=== PATIENT | female | born 1960 | race Caucasian/White ===

== ENCOUNTER 2019-01-30 07:59 | Emergency (ER) | payer OTHER ==
[~2019-01-30] VITALS: Ht 160 cm; Wt 64.0 kg
[2019-01-30 08:04] VITALS: BP 163/83; PULSE 85; RESP 20; Ht 160 cm; Wt 64.0 kg
[2019-01-30] MEDS ORDERED: AMOX500C2 PO (08:26)
[2019-01-30] MEDS ORDERED: FAMO-96 PO (08:26)
[2019-01-30] MEDS ORDERED: D-ME473S2 PO (08:26)
--- NOTE | 2019-01-30 08:29 | ERD ---
ER Documentation Chief Complaint Chief Complaint sore throat and fever x 15 days HPI 58-year-old male presents with sore throat for the last 15 days. She may have had tactile fevers at home but no measured temperature. She has minimal cough. She has a history of gastritis. She does not take any medication for stomach although she did in the past. She took one ampicillin that she took at home last night. She denies chest pain, shortness of breath, lower abdominal pain, urinary complaints. ROS All systems reviewed and are negative except as per history of present illness. Medications Home Meds Active Scripts Famotidine* (Pepcid*) 20 Mg Tablet, 20 MG PO BID for 14 Days, #30 TAB Prov:EDWIGE PETERSON MD 01/30/19 Dextromethorphan Hb-Promethazine Hcl* (Promethazine DM* Syrup) 473 Ml Syrup, 5 ML PO Q6 PRN for COUGH for 5 Days, ML Prov:EDWIGE PETERSON MD 01/30/19 Amoxicillin* (Amoxicillin*) 500 Mg Cap, 500 MG PO TID for 10 Days, CAP Prov:EDWIGE PETERSON MD 01/30/19 Allergies Allergies: Coded Allergies: ibuprofen (Verified Allergy, Unknown, 01/30/19) PMhx/Soc History of Surgery: Yes (c section x 2) Anesthesia Reaction: No Hx Neurological Disorder: No Hx Respiratory Disorders: No Hx Cardiac Disorders: Yes (HYPOTENSION) Hx Psychiatric Problems: No Hx Miscellaneous Medical Probl: No Hx Alcohol Use: No Hx Substance Use: No Hx Tobacco Use: No Smoking Status: Never smoker FmHx Family History: No diabetes, No coronary disease, No other Physical Exam Vitals Vital Signs Date Temp Pulse Resp B/P (MAP) Pulse Ox O2 O2 Flow FiO2 Time Delivery Rate 01/30/19 99.0 85 20 163/83 98 08:04 (109) Physical Exam Const: No acute distress Head: Atraumatic Eyes: Normal Conjunctiva ENT: Normal External Ears, Nose and Mouth. TMs normal. Tonsils 3+ with redness without exudate. Uvula midline and airway patent. Neck: Full range of motion. No meningismus. Resp: Clear to auscultation bilaterally Cardio: Regular rate and rhythm, no murmurs Abd: Soft, non tender, non distended. Normal bowel sounds Skin: No petechiae or rashes Back: No midline or flank tenderness Ext: No cyanosis, or edema Neur: Awake and alert Psych: Normal Mood and Affect Procedures/MDM Patient presents with sore throat for last 2 days. She has some erythema posterior oropharynx. Given the duration will treat empirically with amoxicillin, promethazine DM. Will give Pepcid as well for her epigastric pain and history of gastritis which could be because of sore throat but again we will treat for infection given the duration. She has no evidence of airway obstruction, abscess, signs of abdominal pain, chest pain or shortness of breath. The patient was stable with no new complaints during the ER course. Clinically, there is no current evidence to suggest meningitis, sepsis, acute abdomen, pneumonia, stroke, acute coronary syndrome, pulmonary embolism, aortic dissection or any other emergent condition appearing to require further evaluation or hospitalization. Patient counseled regarding my diagnostic impression and care plan. Prior to discharge all questions answered. Pt agrees with treatment plan and understands strict return precautions. Pt is instructed to follow up with primary care provider within 24-48 hours. Precautionary instructions provided including instructions to return to the ER if not improving or for any worsening or changing symptoms or concerns. Departure Diagnosis: Primary Impression: Sore throat Condition: Stable Patient Instructions: Gastritis (Adult), Pharyngitis, Strep (Presumed) Referrals: NO PRIMARY,CARE PHYSICIAN (PCP) Additional Instructions: Cheque otro vez con eden doctor primario en el proximo vasquez or regresa para mas o nueva simptomas. EDWIGE PETERSON MD Jan 30, 2019 08:29
== END 2019-01-30 08:39 | disposition home or self-care (01) ==
LOC: FTE 07:59
DX: J02.9 Acute pharyngitis, unspecified (principal)
CPT/HCPCS: 99283